=== PATIENT | male | born 1975 | race Caucasian/White ===

== ENCOUNTER 2018-11-15 22:52 | Emergency (ER) | payer SELFPAY ==
[~2018-11-15] VITALS: Ht 175.3 cm; Wt 79.4 kg
[~2018-11-15 22:52] MED LIST: ANAPROX DS550 MG PO; CYCLOBENZAPRINE10 MG PO; KEFLEX500 MG PO; LIDODERM700 MG TOP; NAPROXEN500 MG PO; NORCO 5-325 TA1 EACH PO
[2018-11-16] MEDS ORDERED: OMEPRAZOLE20 MG PO (01:24)
== END 2018-11-16 01:35 | disposition home or self-care (01) ==
LOC: ED 22:52
DX: K27.9 Peptic ulcer, site unspecified, unspecified as acute or chronic, without hemorrhage or perforation (principal); F17.200 Nicotine dependence, unspecified, uncomplicated
CPT/HCPCS: 76705; 80053; 81001; 83690; 85025; 96361; 99284-25; G0480; J1170; J2405; J7030